=== PATIENT | female | born 1995 | race Caucasian/White ===

== ENCOUNTER 2018-04-12 18:22 | Emergency (ER) | payer BC ==
[~2018-04-12] VITALS: Ht 167.6 cm; Wt 65.9 kg
[2018-04-12 18:26] VITALS: BP 93/53; PULSE 83; TEMP 98.4
[2018-04-12] MEDS ORDERED: PROZAC 10MG10 MG PO (18:29)
[2018-04-12] MEDS ORDERED: MONONESSA 35 MC1 TA1 PO (18:30)
== END 2018-04-12 20:21 | disposition home or self-care (01) ==
LOC: COL.ER 18:22
DX: S61.012A Laceration without foreign body of left thumb without damage to nail, initial encounter (principal); W26.0XXA Contact with knife, initial encounter